=== PATIENT | female | born 1955 | race Caucasian/White ===

== ENCOUNTER 2022-04-07 07:42 | Outpatient (REF) | payer MEDICARE, SELFPAY ==
--- NOTE | ~2022-04-07 | MM_ITS ---
EXAMINATION: MM SCREENING DIGITAL BREAST TOMOSYNTHESIS, BILATERAL CLINICAL INFORMATION: Screening. Asymptomatic. The lifetime risk of breast cancer based on the Tyrer-Cuzick Model is 8%. COMPARISON: Mammography: 07/15/2019, 06/08/2018, 02/21/2017, 02/05/2016 TECHNIQUE: Digital mammography is performed in craniocaudal and mediolateral oblique views along with computer-aided detection (CAD). Digital breast tomosynthesis is performed in implant-displaced craniocaudal and implant-displaced mediolateral oblique views along with computer-aided detection (CAD). Synthesized 2D images are generated from the tomosynthesis. Additional bilateral CC and additional left MLO views are provided. FINDINGS: There are scattered areas of fibroglandular density (ACR BI-RADS breast composition Category b). There are no significant masses, abnormal calcifications, or other abnormalities. There is no developing density or interval architectural abnormality. Parenchymal pattern is similar to prior studies. There is chronic parenchymal asymmetry above left implant on MLO view similar to prior studies. The implant contours are smooth. The axilla and skin contours are unremarkable. MM/MM tomosynthesis screen imp BI IMPRESSION: No significant changes from prior exams. ASSESSMENT: BI-RADS 2: Benign RECOMMENDATION: Routine annual mammography screening. This patient's information was entered into a reminder system with a target due date for their next mammogram.
== END 2022-04-07 07:43 | disposition home or self-care (01) ==
LOC: HO.MAMMO 07:42
PROVIDERS: Visit Provider Nurse Practitioner Family
DX: Z12.31 Encounter for screening mammogram for malignant neoplasm of breast (principal)
CPT/HCPCS: 77063; 77067

== ENCOUNTER 2023-04-27 11:16 | Outpatient (REF) | payer MEDICARE, SELFPAY ==
--- NOTE | ~2023-04-27 | MM_ITS ---
EXAMINATION: MM SCREENING DIGITAL BREAST TOMOSYNTHESIS, BILATERAL CLINICAL INFORMATION: Screening. Asymptomatic. COMPARISON: Mammography: This study is compared with prior exams dating back to 2016. TECHNIQUE: Digital mammography is performed in craniocaudal and mediolateral oblique views along with computer-aided detection (CAD). Digital breast tomosynthesis is performed in implant-displaced craniocaudal and implant-displaced mediolateral oblique views along with computer-aided detection (CAD). Synthesized 2D images are generated from the tomosynthesis. FINDINGS: There are scattered areas of fibroglandular density (ACR BI-RADS breast composition Category b). There are bilateral, retropectoral silicone breast implants. There is a small amount free silicone within the pectoralis muscle on the left. The amount of silicone in the pectoralis has increased since the 2021 mammogram. A large amount of silicone was present in the left pectoralis muscle in the 2016 study is compared to the current study in the 2021 study.. It is unclear if the patient has had her implants replaced due to prior rupture already the implant was leaking and the silicone has migrated to the axillary lymph nodes.. Clinical correlation with patient's surgical history is also advised. Benign calcifications are present in the superior aspect of the right breast. There are no significant masses, abnormal calcifications, or other abnormalities. MM/MM tomosynthesis screen imp BI IMPRESSION: There are no mammographic signs of malignancy. Clinical and MRI evaluation is advised to evaluate left implant integrity. ASSESSMENT: BI-RADS BI-RADS 2 - Benign Findings RECOMMENDATION: Routine annual mammography screening. 1 year F/U This patient's information was entered into a reminder system with a target due date for their next mammogram.
== END 2023-04-27 11:17 | disposition home or self-care (01) ==
LOC: HO.MAMMO 11:16
PROVIDERS: PCP Nurse Practitioner Family; Visit Provider Nurse Practitioner Family
DX: Z12.31 Encounter for screening mammogram for malignant neoplasm of breast (principal)
CPT/HCPCS: 77063; 77067

== ENCOUNTER → 2023-04-27 11:30 | Outpatient (BNV) | payer MEDICARE, SELFPAY | PROVIDERS: PCP Nurse Practitioner Family; Visit Provider Radiology Diagnostic Radiology | DX: Z12.31 Encounter for screening mammogram for malignant neoplasm of breast (principal) | CPT/HCPCS: 77063; 77067 ==

== ENCOUNTER 2024-05-02 11:10 | Outpatient (REF) | payer MEDICARE, SELFPAY ==
--- NOTE | ~2024-05-02 | MM_ITS ---
EXAMINATION: MM SCREENING DIGITAL BREAST TOMOSYNTHESIS, BILATERAL CLINICAL INFORMATION: Screening. Asymptomatic. COMPARISON: Mammography: Comparison is made with prior available imaging. TECHNIQUE: Digital mammography is performed in craniocaudal and mediolateral oblique views along with computer-aided detection (CAD). Digital breast tomosynthesis is performed in implant-displaced craniocaudal and implant-displaced mediolateral oblique views along with computer-aided detection (CAD). Synthesized 2D images are generated from the tomosynthesis. FINDINGS: There are scattered areas of fibroglandular density (ACR BI-RADS breast composition Category b). Bilateral silicone implants are without gross abnormality. There are no significant masses, abnormal calcifications, or other abnormalities. MM/MM tomosynthesis screen imp BI IMPRESSION: There are no significant changes from prior study. ASSESSMENT: BI-RADS BI-RADS 2 - Benign Findings RECOMMENDATION: Routine annual mammography screening. 1 year F/U This patient's information was entered into a reminder system with a target due date for their next mammogram. Electronically signed by: Gianna Ibarra DO 05/19/2024 02:22 PM EDT
== END 2024-05-02 11:11 | disposition home or self-care (01) ==
LOC: HO.MAMMO 11:10
PROVIDERS: PCP Nurse Practitioner Family; Visit Provider Nurse Practitioner Family
DX: Z12.31 Encounter for screening mammogram for malignant neoplasm of breast (principal)
CPT/HCPCS: 77063; 77067

== ENCOUNTER → 2024-05-02 11:30 | Outpatient (BNV) | payer MEDICARE, SELFPAY | PROVIDERS: PCP Nurse Practitioner Family; Visit Provider Internal Medicine | DX: Z12.31 Encounter for screening mammogram for malignant neoplasm of breast (principal) | CPT/HCPCS: 77063; 77067 ==

== ENCOUNTER 2025-08-05 16:00 | Outpatient (REF) | payer MEDICARE, SELFPAY ==
--- NOTE | ~2025-08-05 | MM_ITS ---
EXAMINATION: MM SCREENING DIGITAL BREAST TOMOSYNTHESIS, BILATERAL CLINICAL INFORMATION: Screening. Asymptomatic. COMPARISON: Comparison made to multiple prior, most recent May 02, 2024, and most remote February 21, 2017. TECHNIQUE: Digital breast tomosynthesis is performed in mediolateral oblique and craniocaudal views along with computer-aided detection (CAD). Digital breast tomosynthesis is performed in implant-displaced craniocaudal and implant-displaced mediolateral oblique views along with computer-aided detection (CAD). Synthesized 2D images are generated from the tomosynthesis. FINDINGS: BREAST COMPOSITION: There are scattered areas of fibroglandular density. BILATERAL BREASTS: Bilateral retroglandular silicone implants appear mammographically intact. No significant masses, suspicious calcifications or other abnormalities are seen in either breast. MM/MM tomosynthesis screen imp BI IMPRESSION: BILATERAL BREASTS: Benign, no mammographic evidence of malignancy. Normal interval follow-up is recommended in 12 months. ASSESSMENT: BI-RADS: Category 2: Benign RECOMMENDATION: Routine annual mammography screening. FOLLOW-UP: 1 year F/U This examination should not preclude the clinical evaluation of a suspicious palpable abnormality. This patient's information was entered into a reminder system with a target due date for their next mammogram. Electronically signed by: Jake Segura MD 08/05/2025 06:52 PM [facility]
--- OUTSIDE RECORDS SUMMARY | 2025-08-05 22:46 | XMS_ITS | Encounter Summary ---
Author Organization [employer] Address [address] [place] [address] [address] [place] [address] Care Team Providers Care Grinder Gear Name Role Phone Rita Montalvo OUTSOLE HANDLER Unavailable Unavailable [place] DNP Primary Care Provider [phone] Reason for Visit * Reason Onset Date Comments Med Refill 01/22/2025 Encounter Details Date Type Department Care Team (Late st Contact Info) Description 01/22/[address] [phone] [place] W[place] DNP [address] [place] [id number] Attention deficit hyperactivity disorder (ADHD), combined type Social History Tobacco Use Types Packs/Day Years Used Date Smoking Tobacco: Former Cigarettes Passive Smoke Exposure: Past Smokeless Tobacco: Never Alcohol Use Standard Drinks/Week Comments Yes 0 (1 standard drink = 0.6 oz pur e alcohol) a drink or two a day Alcohol Answer Date Recorded How often do you have a drink containing alcohol ? 4 10/21/2024 Average Number of Drinks Not on file 025 How often do you have six or more drinks on one occasion? 0 10/21/2024 Housing Stability Answer Date Recorded What is your housing situation today? I have [place] cal[place] 10/21/[address] you li ve. Do you have problems with any of the following? None of the above 10/21/2024 Food Insecurity Answer Date Recorded Within the past 12 months, y ou worried that your food would run out before you got money to buy more: Never True 10/21/2024 Within the past 12 months,th e food you bought just didn't last and you didn't have enough money to get more: Never True Transportation Answer Date Recorded In the past 12 months, has l ack of transportation kept you from medical appts, meetings, work or from getting things needed for daily living? No 10/21/2024 Intimate Partner Violence Answer Date R ecorded Within the last year, have y ou been afraid of your partner or ex-partner? 2 10/21/2024 Within the last year, have y ou been humiliated or emotionally abused in other ways by your partner or ex-partner? 2 Within the last year, have y ou been kicked, hit, slapped, or otherwise physically hurt by your partner or ex-partner? 2 10/21/2024 Within the last year, have y ou been raped or forced to have any kind of sexual activity by your partner or ex-partner? 2 10/21/2024 Utilities Answer Date Recorded In the past 12 months, has t he electric, gas, oil or water company threatened to shut off services in your home? No 10/21/2024 Depression Answer Date Recorded Patient Health Questionnaire-2 Score 2 08/15/2023 Internet Access Answer Date Recorded Internet Access Q1 Yes 10/21/2024 Internet Access Q2 Not on file 10/21/2024 Comments Unknown Sex and Gender Information Value Date Recorded Sex Assigned at Female 01/24/2023 2:18 PM EDT Legal Sex Female 6:22 PM EDT Gender Identity Female 01/24/2023 2:18 PM EDT Sexual Orientation Don't know 01/24/2023 2: 19 PM EDT documented as of this encounter Miscellaneous Notes * Telephone Encounter - Glenys Pa RN - 01/22/2025 4:40 PM EDT Left message on [employer] machine this is a duplicate request . Meds were sent to the pharmacy yesterday documented in this encounter Plan of Treatment Upcoming Encounters Date Type Department Care Team (Late st Contact Info) Description 12/22/2025 10:20 AM EDT Office Visit [address] [place] [phone] Lake Wylie DNP [address] [place] [address] documented as of this encounter Visit Diagnoses Diagnosis Attention deficit hyperactivity disorder (ADHD), combined type documented in this encounter Care Teams Grinder Gear Relationship Specialty Start Date End Date [place] Wylie DNP [address] [place] [address] PCP - General Family Medicine 08/15/23 Rita Montalvo FNP Family Medicine 06/24/22 documented as of this encounter
--- OUTSIDE RECORDS SUMMARY | 2025-08-05 22:46 | XMS_ITS | Clinical Summary ---
Author Organization [employer] Address [address] [facility] [address] [place] [address] Care Team Providers Care Call Or Contact Centre Manager Name Role Phone Rita Montalvo JOIST SETTER Unavailable Unavailable [place] DNP Primary Care Provider [phone] Allergies No known active allergies Medications Diclofenac Sodium 1 % gelIndications:A rthralgia of hands, bilateral Apply thin layer to both hands twice daily. 150 g 2 025 Active Additional Information Patient not taking.Reported on 06/23/2025 buPROPion XL (Wellbutrin XL) 150 MG 24 hr tabletIndication s:Recurrent major depression in complete remission (CMS/HCC) Take 1 tablet (150 mg) by mouth in the morning. 90 tablet 1 025 Active rosuvastatin (Crestor) 40 MG tablet Take 1 tablet (40 mg) by mouth Once per day. 90 tablet 3 025 Active methylphenidate ER (Concerta) 27 MG CR tabletIndication s:Attention deficit hyperactivity disorder (ADHD), combined type Take 1 tablet (27 mg) by mouth in the morning. 28 tablet 5 3:26 PM EST 025 2024 Active methylphenidate ER (Concerta) 36 MG CR tabletIndication s:Attention deficit hyperactivity disorder (ADHD), combined type Take 1 tablet (36 mg) by mouth in the morning. 28 tablet 5 3:26 PM EST 025 2024 Active methylphenidate (Ritalin) 5 MG tabletIndication s:Attention deficit hyperactivity disorder (ADHD), combined type Take 1 tablet (5 mg) by mouth Once per day. 30 tablet 3:26 PM EST 025 2024 Active methylphenidate ER (Concerta) 27 MG CR tabletIndication s:Attention deficit hyperactivity disorder (ADHD), combined type Take 1 tablet (27 mg) by mouth in the morning. 28 tablet 025 2024 Discontinued(R eorder (will not trigger notification to Pharmacy)) methylphenidate ER (Concerta) 36 MG CR tabletIndication s:Attention deficit hyperactivity disorder (ADHD), combined type Take 1 tablet (36 mg) by mouth in the morning. 28 tablet 025 2024 Discontinued(R eorder (will not trigger notification to Pharmacy)) methylphenidate (Ritalin) 5 MG tabletIndication s:Attention deficit hyperactivity disorder (ADHD), combined type Take 1 tablet (5 mg) by mouth Once per day. 30 tablet 025 2024 Discontinued(R eorder (will not trigger notification to Pharmacy)) Active Problems Problem Noted Date Diagnosed Date Familial hypercholesterolemia 03/04/2025 ASCVD (arteriosclerotic cardiovascular disease) 03/04/2025 Arthralgia of hip 10/22/2019 Attention deficit hyperactiv ity disorder (ADHD), combined type 10/21/2019 Atypical nevus 10/21/2019 Recurrent major depression in complete remission 10/21/2019 Complication of breast implant 05/20/2019 Elastosis of skin 05/20/2019 Encounters Date Type Department Care Team Description 07/15/[address] [place] [id number] [place] DNP Attention deficit hyperactivity disorder (ADHD), combined type 06/24/2025 Results Follow-Up [facility] [address] [facility] [address] [place] [address] [place] DNP Lipid Panel, Standard, Comprehensive Metabolic Panel, CBC 06/23/2025 10:00 AM EDT Office Visit [facility] [address] [facility] [address] [place] [address] [place] DNP Attention deficit hyperactivity disorder (ADHD), combined type (Primary Dx); Familial hypercholesterolemia, unspecified type 05/26/2025 Refill [facility] [address] [facility] [address] [place] [address] [place] Wyl[place] DNP Attention deficit hyperactivity disorder (ADHD), combined type 05/23/[address] [phone] Olman Hazel MD 05/23/[address] [phone] [place] DNP Recurrent major depression in complete remission (CMS/HCC) 05/23/2025 Refill [facility] [address] [facility] [address] [place] [address] [place] Wylie DNP Attention deficit hyperactivity disorder (ADHD), combined type from Last 3 Months Immunizations Immunization Administration Dates Next Due Tdap 10/21/2019,03/30/2010 Social History Tobacco Use Types Packs/Day Years Used Date Smoking Tobacco: Former Cigarettes Passive Smoke Exposure: Past Smokeless Tobacco: Never Tobacco Cessation:Counseling Given: Not Answered Alcohol Use Standard Drinks/Week Comments Yes 0 [...] Don't know 01/24/2023 2: 19 PM EDT Last Filed Vital Signs Vital Sign Reading Time Taken Comments Blood Pressure 132/82 06/23/2025 10:05 AM EDT Pulse 62 06/23/2025 10:05 AM EDT Temperature 36.4 C (97.6 F) 06/23/2025 10:05 AM EDT Respiratory Rate - - Oxygen Saturation 99% 06/23/2025 10:05 AM EDT Inhaled Oxygen Concentration - - Weight 66.7 kg (147 lb) 06/23/2025 10:05 AM EDT Height 165.1 cm (5' 5 ) 03/04/2025 12:59 PM EDT Body Mass Index 24.46 03/04/2025 12:59 PM EDT Plan of Treatment Upcoming Encounters Date Type Department Care Team (Late st Contact Info) Description 12/22/2025 10:20 AM EDT Office Visit [address] [place] [address] [place] y[place], DNP [address] [facility] [address] [place] [address] Health Maintenance Due Date Last Done Comments CT Colonography 1956 FIT 1956 Sigmoidoscopy 1955 Pneumococcal Vaccine: 50+ Years (1 of 2 - PCV) 11/29/1975 RSV Patients and Patients Aged 60 years or older (1 - Risk 50-74 years 1-dose series) 2006 Zoster Vaccines (1 of 2) 2006 Depression Screening 08/15/2024 08/15/2023, 08/15/20 23 COVID-19 Vaccine (2024- season) 2025 08/02/2021, 12/04/2020, 11/06/2020 Mammogram 05/02/2025 05/02/2024, 03/28, 07/23/2019, Additional history exists Alcohol/Substance Use Screening 10/21/2025 10/21/2024 SDOH Screening 10/21/2025 10/21/2024 FOBT 11/20/2025 11/20/2024 Influenza Vaccine (#1) 2026 Postp oned from 04/28/2025 (Patient Refused) Tobacco Screening 06/24/2026 06/24/2025 FIT DNA/Cologuard 11/21/2027 11/20/2024 DTaP/Tdap/Td Vaccines (3 - Td or Tdap) 10/21/2029 10/21/2019, 03/30/2010 Lipid Panel 06/23/2030 06/23/2025, 06/06/2024 Colonoscopy 02/19/2032 02/18/2025, 01/27, 02/18/2025, Additional history exists Colorectal Cancer Screening 02/19/2032 Cervical Cancer Screening Discontinued HPV/Cotest Discontinued 05/26/2020 Pap Smear Discontinued 05/26/2020 Hepatitis C Screening Completed 10/21/2024 HIB Vaccines Aged Out No longer eligi ble based on patient's age to complete this topic HPV Vaccines Aged Out No longer eligi ble based on patient's age to complete this topic Hepatitis A Vaccines Aged Out No long er eligible based on patient's age to complete this topic Hepatitis B Vaccines Aged Out No long er eligible based on patient's age to complete this topic IPV Vaccines Aged Out No longer eligi ble based on patient's age to complete this topic Meningococcal B Vaccine Aged Out No l onger eligible based on patient's age to complete this topic Meningococcal Vaccine Aged Out No oni remington eligible based on patient's age to complete this topic RSV under 20 months Aged Out No longe r eligible based on patient's age to complete this topic Rotavirus Vaccines Aged Out No longer eligible based on patient's age to complete this topic Procedures Procedure Name Priority Date/Time Associated Diagnosis Comments CBC Routine 06/23/2025 10:35 AM EDT Familial hypercholesterolemi a, unspecified type COMPREHENSIVE METABOLIC PANEL Routine 06/23/2025 10:35 AM EDT Familial hypercholesterolemi a, unspecified type LIPID PANEL, STANDARD Routine 06/23/2025 10:35 AM EDT Familial hypercholesterolemi a, unspecified type COLONOSCOPY Routine 02/18/2025 3:11 PM EDT LAB COLOGUARD COLON CANCER SCREEN Routine 11/20/2024 8:34 AM EDT Colon cancer screening HEPATITIS C AB W/REFL TO HCV RNA, QN, PCR Routine 10/21/2024 11:32 AM EST Screening for viral disease MAMMOGRAPHY Routine 05/02/2024 12:06 PM EDT THIN PREP PAP, WITH HPV, GENOTYPE IF HPV+ Routine 05/26/2020 11:32 PM EDT from Last 3 Months or Most Recently Relevant to Health Maintenance Results * CBC (06/23/2025 10:35 AM EDT) White Blood Cell Count 7.1 3.8 - 10.8 Thousand/ uL [facility] Red Blood Cell Count 4.60 3.80 - 5.10 Million/u L [facility] Hemoglobin 14.8 11.7 - 15.5 g/dL [facility] Hematocrit 44.4 35.0 - 45.0 % [facility] MCV 96.5 80.0 - 100.0 fL [facility] MCH 32.2 27.0 - 33.0 pg [facility] MCHC 33.3 32.0 - 36.0 g/dL [facility] Comment: For adults, a slight decrease in the calculated MCHC value (in the range of 30 to 32 g/dL) is most likely not clinically significant; however, it should be interpreted with caution in correlation with other red cell parameters and the patient's clinical condition. RDW 13.0 11.0 - 15.0 % [facility] Platelet Count 295 140 - 400 Thousand/ uL [facility] MPV 10.5 7.5 - 12.5 fL [facility] Blood Venous blood specimen / Unknown 06/23/2025 10:35 AM EDT 06/23/2025 10:35 AM EDT [place] [facility] LAB BLOOD ORDERABLES Final Result [facility] [address] [place] [address] [facility] [address] [place] [address] * (ABNORMAL) Lipid Panel, Standard (06/23/2025 10:35 AM EDT) Cholesterol, Total 223(H) <200 mg/dL [facility] HDL Cholesterol 78 > OR = 50 mg/dL [facility] Triglycerides 53 <150 mg/dL [facility] LDL Cholesterol 131(H) mg/dL [facility] Comment: Reference range: <100 Desirable range <100 mg/dL for primary prevention; <70 mg/dL for patients with CHD or diabetic patients with > or = 2 CHD risk factors. LDL-C is now calculated using the Aj-Leach calculation, which is a validated novel method providing better accuracy than the Friedewald equation in the estimation of LDL-C. Aj SS et al. SAMANTA. 2013;310(19): 4015-5114 (http://education.Socialcam/faq/EVJ198) Chol/HDLC Ratio 2.9 <5.0 (calc) [facility] Non-HDL Cholesterol 145(H) <130 mg/dL [facility] Comment: For patients with diabetes plus 1 major ASCVD risk factor, treating to a non-HDL-C goal of <100 mg/dL (LDL-C of <70 mg/dL) is considered a therapeutic option. Blood Venous blood specimen / Unknown 06/23/2025 10:35 AM EDT 06/23/2025 10:35 AM EDT [place] [facility] LAB BLOOD ORDERABLES Final Result [facility] [address], [place] [address] [facility] [address] [place] [address] * (ABNORMAL) Comprehensive Metabolic Panel (06/23/2025 10:35 AM EDT) [facility] Signature Glucose 69 65 - 99 mg/dL [facility] Comment: Fasting reference interval Urea Nitrogen (BUN) 17 7 - 25 mg/dL [facility] Creatinine, Serum 0.59 0.50 - 1.05 mg/dL [facility] eGFR 98 > OR = 60 mL/min/1. 73m2 [facility] BUN/Creatinine Ratio SEE NOTE: 6 - 22 (calc) [facility] Comment: Not Reported: BUN and Creatinine are within reference range. Sodium 138 135 - 146 mmol/L [facility] Potassium 4.6 3.5 - 5.3 mmol/L [facility] Chloride 100 98 - 110 mmol/L [facility] Carbon Dioxide 29 20 - 32 mmol/L [facility] Calcium 9.8 8.6 - 10.4 mg/dL [facility] Protein, Total 7.4 6.1 - 8.1 g/dL [facility] Albumin 4.3 3.6 - 5.1 g/dL [facility] Globulin 3.1 1.9 - 3.7 g/dL (calc) [facility] Albumin/Globuli n Ratio 1.4 1.0 - 2.5 (calc) [facility] Bilirubin, Total 0.8 0.2 - 1.2 mg/dL [facility] Alkaline Phosphatase 58 37 - 153 U/L [facility] AST 48(H) 10 - 35 U/L [facility] ALT 51(H) 6 - 29 U/L [facility] Blood Venous blood specimen / Unknown 06/23/2025 10:35 AM EDT 06/23/2025 10:35 AM EDT [place] [facility] LAB BLOOD ORDERABLES Final Result [facility] [address], [place] [address] [facility] [address] [place] [address] * Colonoscopy (02/18/2025 3:11 PM EDT) Not In System Provider HEALTH MAINTENANCE Edited Result - Final * (ABNORMAL) Cologuard?? colon cancer screening (11/20/2024 8:34 AM EDT) Cologuard Result Positive( A) Negative 11/23/2024 8:36 AM EDT [facility] (CLIA #:[id number]) Comment: POSITIVE TEST RESULT. A positive Cologuard result should be followed with a colonoscopy or visual examination of the colon. The normal value (reference range) for this assay is negative. TEST DESCRIPTION: Composite algorithmic analysis of stool DNA-biomarkers with hemoglobin immunoassay. Quantitative values of individual biomarkers are not reportable and are not associated with individual biomarker result reference ranges. Cologuard is intended for colorectal cancer screening of adults of either sex, 45 years or older, who are at average-risk for colorectal cancer (CRC). Cologuard has been approved for use by the U.S. FDA. The performance of Cologuard was established in a cross sectional study of average-risk adults aged 50-84. Cologuard performance in patients ages 45 to 49 years was estimated by sub-group analysis of near-age groups. Colonoscopies performed for a positive result may find as the most clinically significant lesion: colorectal cancer [4.0%], advanced adenoma (including sessile serrated polyps greater than or equal to 1cm diameter) [20%] or non- advanced adenoma [31%]; or no colorectal neoplasia [45%]. These estimates are derived from a prospective cross-sectional screening study of 10,000 individuals at average risk for colorectal cancer who were screened with both Cologuard and colonoscopy. (Celso Bah al, N Engl J Med 2014;370(14):5022-4755.) Cologuard may produce a false negative or false positive result (no colorectal cancer or precancerous polyp present at colonoscopy follow up). A negative Cologuard test result does not guarantee the absence of CRC or advanced adenoma (pre-cancer). The current Cologuard screening interval is every 3 years. ([place] [employer] Society and U.S. Multi-Society Task Force). Cologuard performance data in a 10,000 patient pivotal study using colonoscopy as the reference method can be accessed at the following location: www.[employer]/results. Additional description of the Cologuard test process, warnings and precautions can be found at [email or web address]. Stool specimen (specimen) 11/20/2024 8:34 AM EDT 11/21/2024 12:39 PM EDT [place] DNP LAB MOLECULAR DIAGNOSTICS O RDERABLES Final Result [facility] (CLIA #:[id number]) [address] [place] [address], * Hepatitis C Antibody with Reflex to HCV, RNA, Quantitative, Real-Time PCR (10/21/2024 11:32 AM EST) Hepatitis C Antibody NON-REACT ADRIANA NON-REACT ADRIANA [facility] Comment: HCV antibody was non-reactive. There is no laboratory evidence of HCV infection. In most cases, no further action is required. However, if recent HCV exposure is suspected, a test for HCV RNA (test code 12572) is suggested. For additional information please refer to http://education.[employer]/faq/PDT20j7 (This link is being provided for informational/ educational purposes only.) Blood Venous blood specimen / Unknown 10/21/2024 11:32 AM EST 10/21/2024 11:33 AM EST [place] DNP LAB BLOOD ORDERABLES Final Result [facility] [address], [place] [address] [facility] [address] [place] [address] * Hm Mammography (05/02/2024 12:06 PM EDT) Anatomical Region Laterality Modality Other us Not In System Provider HEALTH MAINTENANCE Edited Result - Final * THIN PREP PAP, WITH HPV, GENOTYPE IF HPV+ (05/26/2020 11:32 PM EDT) See Report [facility] 05/26/2020 11:3 2 PM EDT us Historical Provider MD LAB CYTOLOGY ORDERABLES F inal Result [facility] [address] [place] [address], from Last 3 Months or Most Recently Relevant to Health Maintenance Insurance MEDICARE [facility] MEDEX MEDICARE SUPPLEMENT * Guarantor: Clair Page Account Type Relation to Patient Date of Phone Billing Address Dental Self Care Teams Call Or Contact Centre Manager Relationship Specialty Start Date End Date [place] DNP [address] [facility] [place] [address] PCP - General Family Medicine 08/15/23 Rita Montalvo FNP Family Medicine 06/24/22
--- OUTSIDE RECORDS SUMMARY | 2025-08-05 22:46 | XMS_ITS | Encounter Summary ---
Author Organization [facility] Address [address] [facility] [address] [place] [address] Phone Care Team Providers Care Final Cleaner Name Role Phone Rita Montalvo INFORMATION SECURITY ASSOCIATE Primary Care Provider Jaclyn Weiss MD Primary Care Provider Unavail Rita Maguire INFORMATION SECURITY ASSOCIATE Primary Care Provider [place] INFORMATION SECURITY ASSOCIATE Primary Care Provider [phone] Encounter Details Date Type Department Care Team (Late st Contact Info) Description 04/15/2020 Procedure Pass OR Admitting Dept - Virtual Department [address] [place] [id number] Social History Tobacco Use Types Packs/Day Years Used Date Smoking Tobacco: Former Cigarettes 2 17 1 969 - 1986 Smokeless Tobacco: Never Alcohol Use Standard Drinks/Week Comments Yes 14 (1 standard drink = 0.6 oz pu re alcohol) Comments No Sex and Gender Information Value Date Recorded Sex Assigned at Not on file Legal Sex Female 10:33 AM EDT Gender Identity Not on file Sexual Orientation Not on file documented as of this encounter Plan of Treatment Upcoming Encounters Date Type Department Care Team (Late Contact Info) Description 09/18/2025 10:00 AM EST Office Visit [facility] Rheumatology [address] [place] [address] Audra Ulloa MD [address] [facility], [address] [place] [address] [email or web address] documented as of this encounter Visit Diagnoses Not on filedocumented in this encounter Care Teams Final Cleaner Relationship Specialty Start Date End Date Rita Montalvo NP [address] [place] [address] PCP - General Family Medicine 02/10/20 10/05/20 Jaclyn Weiss MD PCP - General Nephrology 10/06/20 06/22/22 Rita Montalvo NP [address] [place] [address] PCP - General Family Medicine 06/23/22 02/17/25 [place] NP [address] [place] [address] PCP - General Nurse Practitioner 02/18/25 documented as of this encounter Additional Source Comments The information contained in this document represents components of the legal health record. It is not the complete legal health record.[facility]
--- OUTSIDE RECORDS SUMMARY | 2025-08-05 22:46 | XMS_ITS | Clinical Summary ---
Author Organization [facility] Address [address] [employer] [facility] [address] [place] [address] Phone Care Team Providers Care Assembler Equipment Name Role Phone Lake Wylie NP Primary Care Provider +1- [phone] Allergies No known active allergies Medications methylphenidate HCl 36 MG ER tablet Take 36 mg by mouth every morning. Active methylphenidate HCl 27 MG CR tablet Take 27 mg by mouth every morning. Active calcium carb,cit-mag cit,ox-D3 300 mg-150 mg- 400 unit Tab Active glucosam-chondr qvq-J-krgxyzspm 500-400-2-0.33 mg Cap 1 capsule with a meal Active magnesium oxide-Mg AA chelate 300 mg Cap 1 capsule with a meal Active bupropion HCl (WELLBUTRIN ORAL) Take 150 mg by mouth daily. Active buPROPion (WELLBUTRIN XL) 150 MG ER 24 hr tablet Take 150 mg by mouth daily. 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 Complication of breast implant 05/20/2019 Encounter for exchange of breast implant 019 Encounters Date Type Department Care Team Description 06/24/2025 Transcribe Orders [facility] Rheumatology - Virtual Department [address] [place], [place] [id number] Lake Wylie, SALES PROMOTION COORDINATOR Arthralgia of both hands (Primary Dx) from Last 3 Months Family History Medical History Relation Comments Throat cancer Father Heart disease Maternal Grandfather No Known Problems Maternal Grandmother Heart disease Mother No Known Problems Paternal Grandfather No Known Problems Paternal Grandmother Relation Status Comments Father Maternal Grandfather Maternal Grandmother Mother Paternal Grandfather Paternal Grandmother Social History Tobacco Use Types Packs/Day Years Used Date Smoking Tobacco: Former Cigarettes 2 17 1 969 - 1985 Smokeless Tobacco: Never Tobacco Cessation:Counseling Given: Not Answered Alcohol Use Standard Drinks/Week Comments Yes 14 (1 standard drink = 0.6 oz pu re alcohol) 2 daily Education Answer Date Recorded Are you interested in more education? Not on rebecca e 12/23/2022 Are you concerned about learning? Not on file 12/23/2022 No 12/23/2022 No 12/23/2022 Digital Access Answer Date Recorded No 01/21/2023 No 01/21/2023 Reliable internet access at home? Not on file 01/21/2023 Device with a working camera? Not on file Intimate Partner Violence Answer Date R ecorded Are you denied basic needs s uch as food, clothing, or medical care? No 02/18/2025 In the past 12 months have y ou been in a relationship with a person who hurts, threatens, or tries to control you? No 02/18/2025 Are you denied basic needs s uch as food, clothing, or medical care? No 02/18/2025 In the past 12 months have y ou been in a relationship with a person who hurts, threatens, or tries to control you? No 02/18/2025 Comments No Sex and Gender Information Value Date Recorded Sex Assigned at Not on file Legal Sex Female 10:33 AM EDT Gender Identity Not on file Sexual Orientation Not on file Last Filed Vital Signs Vital Sign Reading Time Taken Comments Blood Pressure 129/70 02/18/2025 9:05 AM EDT Pulse 64 02/18/2025 9:05 AM EDT Temperature 36.5 C (97.7 F) 02/18/2025 8:10 AM EDT Respiratory Rate 22 02/18/2025 9:05 AM EDT Oxygen Saturation 100% 02/18/2025 9:05 AM EDT Inhaled Oxygen Concentration - - Weight 67.1 kg (148 lb) 02/12/2025 8:42 AM EDT Height 167.6 cm (5' 6 ) 02/12/2025 8:42 AM EDT Body Mass Index 23.89 02/12/2025 8:42 AM EDT Plan of Treatment Upcoming Encounters Date Type Department Care Team (Late st Contact Info) Description 09/18/2025 10:00 AM EST Office Visit [facility] Rheumatology [address] [place] [address] Audra Ulloa MD [address] [facility], [address] [place] [address] [email or web address] Health Maintenance Due Date Last Done Comments LIPID PANEL 1955 DEPRESSION SCREENING 1968 HEPATITIS C SCREENING 1974 MAMMOGRAM 1996 FIT TEST 2001 FOBT 2001 SIGMOIDOSCOPY 2001 VIRTUAL COLONOSCOPY 2001 PNEUMOCOCCAL VACCINES (50+ years) (1 of 1 - PCV) 2006 ZOSTER VACCINES (1 of 2) 2006 OSTEOPOROSIS SCREENING INITI AL (ONE-TIME) 2021 INFLUENZA VACCINE (#1) 2025 COVID-19 VACCINE (4 - 2024-2 6 season) 2025 08/02/2021, 12/04/2020, 11/06/2020 COLOGUARD 11/21/2027 11/20/2024 Adult Td,Tdap Booster 10/21/2029 10/21/2019 , 03/30/2010 RSV VACCINE (1 - 1-dose 75+ series) 11/29/2031 COLONOSCOPY 02/18/2035 02/18/2025, 06/23/2022 COLORECTAL CANCER SCREENING 02/18/2035 SMOKING STATUS SCREENING (On ce After 26 Yrs) Completed 02/18/2025 HEPATITIS A VACCINES Aged Out No long er eligible based on patient's age to complete this topic HIB VACCINES Aged Out No longer eligi ble based on patient's age to complete this topic MENINGOCOCCAL VACCINES (ACWY) Aged Out No longer eligible based on patient's age to complete this topic MENINGOCOCCAL VACCINES (B) Aged Out N o longer eligible based on patient's age to complete this topic Medical Devices Implanted Type Area Information Coordinator Device Identifier Shelf Expiration Date Model / Serial / Lot Breast Shell 295cc Implant Silicone Smooth Round Cohesive - [id number] Implanted:Qty: 1 on 04/15/2020 by Jh Siddiqui MD at [facility] Right: Breast [employer] 11/04/2023 [id number] / [id number] / [id number] Implant Breast 375cc Silicone Smooth Round Cohesive Silicone Shell Od10.4cm P5.3cm - [id number] Implanted:Qty: 1 on 04/15/2020 by Jh Siddiqui MD at [facility] Left: Breast [employer] 10/10/2024 [id number] / [id number] / [id number] Sizer Breast 11cm 4.8 310 Implant [employer] Saline Silicone Elastomer Profile High Smooth Round - [id number] Implanted:Qty: 2 on 04/15/2020 by Jh Siddiqui MD at [facility] [employer] [id number] / [id number] / [id number] Procedures Procedure Name Priority Date/Time Associated Diagnosis Comments ENDOSCOPY, COLON 02/18/2025 8:34 AM EDT from Last 3 Months or Most Recently Relevant to Health Maintenance Results * ENDOSCOPY, COLON (02/18/2025 8:34 AM EDT) Narrative Transcriptions Jewels Majano MD - 02/18/2025 8:34 AM EDT [facility] Patient Name: Clair Dean Attending MD:: JEWELS MAJANO MD, Procedure Date: 02/18/2025 8:34 AM Date of : 1955 Age: 69 Admit Type: Outpatient Gender: Female Room: [place] [address] Referring MD: Lake Wylie Exam Type: Colonoscopy Indications: Last colonoscopy: May 2022, Positive Cologuard test, Personal history of colonic polyps Medications: Monitored Anesthesia Care Procedure: Informed consent was obtained from the patientafter discussion of the indications, limitations, alternatives, benefits, and risks of the procedure. Risks specifically discussed include but are not limited to medication reactions, missed lesions, bleeding, perforation, or the need for emergent surgery. Throughout the procedure, the patient's blood pressure, pulse, end-tidal CO2, and oxygensaturations were monitored continuously. The Olympus pediatric variable [id number] #2 was introduced through the anus and advanced tothe cecum, identified by the appendiceal orifice, ileocecal valve and palpation. The colonoscopy was technically difficult and complex due to aredundant colon, significant looping and a tortuous colon. Successful completion of the procedure was aided by applying abdominal pressure. The patient toleratedthe procedure fairly well. The quality of the bowel preparation was evaluated using the BBPS (BostonBowel Preparation Scale) with scores of: Right Colon = 2 (minor amount of residual staining, small fragmentsof stool and/or opaque liquid, but mucosa seen well), Transverse Colon = 3 (entire mucosa seen well withno residual staining, small fragments of stool oropaque liquid) and Left Colon = 2 (minor amount ofresidual staining, small fragments of stool and/or opaque liquid, but mucosa seen well). The total BBPS score equals 7. The ileocecal valve, appendiceal orifice, and rectum were photographed. Complications: No immediate complications. Estimated blood loss:None. Findings: The perianal and digital rectal examinations were normal. Pertinent negatives include normalsphincter tone. A few small-mouthed diverticula were found in the sigmoid colon and descending colon. The colon (entire examined portion) was moderately redundant. Retroflexion in the right colon was performed. The exam was otherwise without abnormality ondirect and retroflexion views. Impression: - Diverticulosis in the sigmoid colon and in the descending colon. - Redundant colon. - The examination was otherwise normal on directand retroflexion views. - No specimens collected. Recommendation: - Reassurance - Repeat colonoscopy in 7-10 years for surveillance. - High fiber diet. JEWELS MAJANO MD 02/18/2025 9:01:05 AM This report has been signed electronically. Number of Addenda: 0 Note Initiated On: 02/18/2025 8:34 AM Procedure Code(s): --- Professional --- 35179, Colonoscopy, flexible; diagnostic, including collection of specimen(s) by brushing or washing, when performed (separateprocedure) --- Technical --- 59348, Colonoscopy, flexible; diagnostic, including collection of specimen(s) by brushing or washing, when performed (separateprocedure) Diagnosis Code(s): --- Professional --- R19.5, Other fecal abnormalities Z86.010, Personal history of colonic polyps K57.30, Diverticulosis of large intestine without perforation or abscess without bleeding Q43.8, Other specified congenital malformations of intestine --- Technical --- R19.5, Other fecal abnormalities Z86.010, Personal history of colonic polyps K57.30, Diverticulosis of large intestine without perforation or abscess without bleeding Q43.8, Other specified congenital malformations of intestine CPT copyright 2021 [employer]. All rights reserved. The codes documented in this report are preliminary and upon events assistant reviewmay be revised to meet current compliance requirements. Procedure Date: 02/18/2025 8:34:[address] [place] [address] Lake Wylie NP GI PROCEDURE ORDERABLES Fi nal Result from Last 3 Months or Most Recently Relevant to Health Maintenance Insurance * Guarantor: Clair Dean Account Type Relation to Patient Date of Phone Billing Address Personal/Family Self 1955 [phone] (Work) [address] [place] [address] [facility] MEDEX SUPPLEMENT MEDICARE PART A & B * Guarantor: RonaldnewtonClair Account Type Relation to Patient Date of Phone Billing Address Personal/Family Self 1955 [phone] (Work) [address] [place] [address] [facility] MEDEX SUPPLEMENT MEDICARE PART A & B * Guarantor: RonaldnewtonClair Account Type Relation to Patient Date of Phone Billing Address Personal/Family Self 1955 [phone] (Work) [address] [place] [address] [employer] MEDEX SUPPLEMENT MEDICARE PART A & B Member Subscriber Plan / Payer (Ef fective 2021-) Name:ShermanmarlenClair fitch Member ID:[id number] Relation to Subscriber:Self Name:Clair Dean Subscriber ID:[id number] Payer ID:[id number] Group ID:Not on file Type:Medicare Address: [facility] [employer] [place] [id number] * Guarantor: RonaldnewtonClair Account Type Relation to Patient Date of Phone Billing Address Personal/Family Self 1955 [phone] (Work) [address] [place] [address] [employer] MEDEX SUPPLEMENT MEDICARE PART A & B * Guarantor: RonaldtavoClair martins Account Type Relation to Patient Date of Phone Billing Address Personal/Family Self 1955 [phone] (Work) [address] [place] [address] [employer] MEDEX SUPPLEMENT MEDICARE PART A & B * Guarantor: AnnamarieyousifClair Account Type Relation to Patient Date of Phone Billing Address Personal/Family Self 1955 [phone] (Work) [address] [place] [address] [employer] MEDEX SUPPLEMENT MEDICARE PART A & B Member Subscriber Plan / Payer (Ef fective 2021-) Name:Clair Dean Member ID:[id number] Relation to Subscriber:Self Name:Clair Dean Subscriber ID:[id number] Payer ID:[id number] Group ID:Not on file Type:Medicare Address: [employer] [address] [id number] * Guarantor: ShermanhuebrtClair martins Account Type Relation to Patient Date of Phone Billing Address Personal/Family Self 1955 [phone] (Work) [address] [place] [id number] [place] [address] MEDEX SUPPLEMENT MEDICARE PART A & B * Guarantor: AnnamarieyousifClair Account Type Relation to Patient Date of Phone Billing Address Personal/Family Self 1955 [phone] (Work) [address] [place] [address] [employer] MEDEX SUPPLEMENT MEDICARE PART A & B * Guarantor: DianneClair Account Type Relation to Patient Date of Phone Billing Address Personal/Family Self 1955 [phone] (Work) [address] [place] [address] [employer] MEDEX SUPPLEMENT MEDICARE PART A & B Advance Directives For more information, please contact: [phone] (9AM - 5PM [facility], Monday-Monday) Documents on File Type Date Recorded Patient Workers Compensation Legal Secretary Expl anation Healthcare Proxy 04/16/2020 10:21 AM * Full Code (Presumed) (Latest Code Status on File) Date Activated Date Inactivated Comments 04/15/2020 7:16 AM Care Teams Assembler Equipment Relationship Specialty Start Date End Date Lake Wylie NP [address] [place] [address] [address] [place] [address] PCP - General Nurse Practitioner 02/18/25 Additional Source Comments The information contained in this document represents components of the legal health record. It is not the complete legal health record.[facility]
--- OUTSIDE RECORDS SUMMARY | 2025-08-05 22:46 | XMS_ITS | Encounter Summary ---
Author Organization [employer] Address [address] [place] [address] 7t [place] [address] Care Team Providers Care Circuits Engineer Name Role Phone Rita Montalvo COMMUNICATION MANAGER Unavailable Unavailable Lake Wylie DNP Primary Care Provider [phone] Encounter Details Date Type Department Care Team (Late st Contact Info) Description 04/24/2025 Orders Only [facility] [address] [place] [address] Provider, Not In System Social History Tobacco Use Types Packs/Day Years [...] PM EDT documented as of this encounter Plan of Treatment Upcoming Encounters Date Type Department Care Team (Late st Contact Info) Description 12/22/2025 10:20 AM EDT Office Visit [address] [place] [address] Lake Wylie, [facility] [address] [place] [address] documented as of this encounter Procedures Procedure Name Priority Date/Time Associated Diagnosis Comments COLONOSCOPY Routine 02/18/2025 3:11 PM EDT documented in this encounter Results * Hm Colonoscopy (02/18/2025 3:11 PM EDT) us Not In System Provider [facility] Edited Result - Final documented in this encounter Visit Diagnoses Not on filedocumented in this encounter Care Teams Circuits Engineer Relationship Specialty Start Date End Date Lake Wylie DNP [address] [facility] [place] [address] PCP - General Family Medicine 08/15/23 Rita Montalvo FNP Family Medicine 06/24/22 documented as of this encounter
--- OUTSIDE RECORDS SUMMARY | 2025-08-05 22:46 | XMS_ITS | Encounter Summary ---
Author Organization [facility] Address [address] [facility] [address] [place] [address] Phone Care Team Providers Care Hearing Aid Mechanic Name Role Phone Rita Montalvo NP Primary Care Provider Jaclyn Weiss MD Primary Care Provider Shimon Rita Maguire NP Primary Care Provider Lake Wylie PACKAGE PICK UP Primary Care Provider [phone]- [phone] Reason for Referral * Occupational Therapy (Routine) - Closed Specialty Diagnoses / Procedures Referred By Claudine bee Referred To Contact Occupational Therapy Diagnoses Encounter for rehabilitation Rita Montalvo NP Phone: tel: fax: [address] [address] Phone: tel: Referral ID Status Reason Start Date Expiration Date Visits Re quested Visits Authorized [id number] Closed 06/29/2020 06/29/2021 6 6 Encounter Details Date Type Department Care Team (Latest Contact Info) Description 06/29/2020 Transcribe Orders [facility] [address] [place] [address] Rita Montalvo NP [address] [place] [address] Encounter for rehabilitation (Primary Dx) Social History Tobacco Use Types Packs/Day Years [...] Description 09/18/2025 10:00 AM EST Office Visit [facility] Rheumatology [address] [place] [address] Audra Ulloa MD [address] [facility], [address] [place] [address] [email or web address] Scheduled Referrals Name Type Priority Associated Diagnoses Orde r Schedule Ambulatory referral to [facility] Occupational Therapy Outpatient Referral Routine Encounter for rehabilitation Ordered: 06/29/2020 documented as of this encounter Visit Diagnoses Diagnosis Encounter for rehabilitation- Primary documented in this encounter Care Teams Hearing Aid Mechanic Relationship Specialty Start Date End Date Rita Montalvo NP [address] [place] [address] PCP - General Family Medicine 02/10/20 10/05/20 Jaclyn Weiss MD PCP - General Nephrology 10/06/20 06/22/22 Rita Montalvo NP [address] [place] [address] PCP - General Family Medicine 06/23/22 02/17/25 Lake Wylie NP [address] [place] [address] [address] [place] [address] PCP - General Nurse Practitioner 02/18/25 documented as of this encounter Additional Source Comments The information contained in this document represents components of the legal health record. It is not the complete legal health record.[facility]
--- OUTSIDE RECORDS SUMMARY | 2025-08-05 22:46 | XMS_ITS | Encounter Summary ---
Author Organization [employer] Address [address] [place] [address] 7 [place] [address] Care Team Providers Care Stock Sorter Name Role Phone Noris Montalvohel OPHTHALMIC MEDICAL TECHNICIAN Unavailable Unavailable Lake Wylie DNP Primary Care Provider [phone] Encounter Details Date Type Department Care Team (Late st Contact Info) Description 10/28/2024 Telephone [facility] [address] [facility] [address] [place] [address] Lake Wylie DNP [address] [place] [address] Social History Tobacco Use Types Packs/Day Years [...] enough money to get more: Never True 02/ Transportation Answer Date Recorded In the past [...] encounter Miscellaneous Notes * Telephone Encounter - Marquita Castillo - 10/31/2024 11:56 AM EST Processed and faxed * Telephone Encounter - Lake Wylie DNP - 10/29/2024 2:56 PM EST Please enter colonoscopy for screening. * Telephone Encounter - Marii Her - 10/28/2024 12:00 PM EST Patient would like to have a coloscopy please aske pcp for the order/refferal [phone] documented in this encounter Plan of Treatment Upcoming Encounters Date Type Department Care Team (Late st Contact Info) Description 12/22/2025 10:20 AM EDT Office Visit [facility] [address] [facility] [address] [place] [address] Lake Wylie DNP [address] [facility] [place] [place] [address] documented as of this encounter Visit Diagnoses Not on filedocumented in this encounter Care Teams Stock Sorter Relationship Specialty Start Date End Date aLke Wylie DNP [address] [place] [address] PCP - General Family Medicine 08/15/23 Rita Montalvo FNP Family Medicine 06/24/22 documented as of this encounter
--- OUTSIDE RECORDS SUMMARY | 2025-08-05 22:46 | XMS_ITS | Encounter Summary ---
Author Organization [employer] Address [address] [place] [address] 7 [place] [address] Care Team Providers Care Racking Machine Operator Name Role Phone Rita Montalvo MAINSPRING TORQUE TESTER Unavailable Unavailable Lake Wylie DNP Primary Care Provider [phone] Encounter Details Date Type Department Care Team (Latest Contact Info) Description 06/24/2025 Results Follow-Up [facility] 119 [facility] [address] [place] [address] Lake Wylie DNP [address] [place] [address] Lipid Panel, Standard, Comprehensive Metabolic Panel, CBC Social History Tobacco Use Types Packs/Day Years [...] Description 12/22/2025 10:20 AM EDT Office Visit [facility] [address] [facility] [address] [place] [address] Lake Wylie DNP [address] [place] [address] documented as of this encounter Visit Diagnoses Not on filedocumented in this encounter Care Teams Racking Machine Operator Relationship Specialty Start Date End Date Lake Wylie DNP [address] [place] [address] PCP - General Family Medicine 08/15/23 Rita Montalvo FNP Family Medicine 06/24/22 documented as of this encounter
--- OUTSIDE RECORDS SUMMARY | 2025-08-05 22:46 | XMS_ITS | Encounter Summary ---
Author Organization [employer] Address [address] [place] [address] 7t [place] [address] Care Team Providers Care Medication Tech Name Role Phone Rita Montalvo SUPERVISOR FINE GRADING Unavailable Unavailable Lake Wylie DNP Primary Care Provider [phone] Encounter Details Date Type Department Care Team (Late st Contact Info) Description 10/18/2024 Orders Only [facility] [address] [place], [place] [id number] Provider, Not In System Social History Tobacco [...] Description 12/22/2025 10:20 AM EDT Office Visit [facility] 119 [facility] [address] [place] [address] Lake Wylie, [facility] [address] [place] [address] documented as of this encounter Procedures Procedure Name Priority Date/Time Associated Diagnosis Comments MAMMOGRAPHY Routine 05/02/2024 12:06 PM EDT documented in this encounter Results * Mammography (05/02/2024 12:06 PM EDT) Anatomical Region Laterality Modality Other us Not In System Provider [facility] Result - Final documented in this encounter Visit Diagnoses Not on filedocumented in this encounter Care Teams Medication Tech Relationship Specialty Start Date End Date Lake Wylie DNP [address] [place] [address] PCP - General Family Medicine 08/15/23 Rita Montalvo FNP Family Medicine 06/24/22 documented as of this encounter
--- OUTSIDE RECORDS SUMMARY | 2025-08-05 22:46 | XMS_ITS | Encounter Summary ---
Author Organization [facility] Address [address] [employer] [address] [place] [address] Phone Care Team Providers Care Supervisor Cell Room Name Role Phone Lake Wylie UTILIZATION REVIEW SPECIALIST Primary Care Provider [phone] Encounter Details Date Type Department Care Team (Late st Contact Info) Description 02/18/2025 Procedure Pass [facility] Endoscopy Admitting Dept Virtual Department [address] [place] [address] Social History Tobacco Use Types Packs/Day Years [...] Description 09/18/2025 10:00 AM EST Office Visit [facility] Rheumatology [address] [place] [address] Audra Ulloa MD [address] [facility], [address] [place] [address] [email or web address] documented as of this encounter Visit Diagnoses Not on filedocumented in this encounter Care Teams Supervisor Cell Room Relationship Specialty Start Date End Date Lake Wylie NP [address] [place] [address] PCP - General Nurse Practitioner 02/18/25 documented as of this encounter Additional Source Comments The information contained in this document represents components of the legal health record. It is not the complete legal health record.[facility]
--- OUTSIDE RECORDS SUMMARY | 2025-08-05 22:46 | XMS_ITS | Encounter Summary ---
Author Organization [facility] Address [address] [place] [address] Phone Care Team Providers Care Photogrammetric Technician Name Role Phone Rita Montalvo MEDICAL RECEPTIONIST BILLER Primary Care Provider [place] MEDICAL RECEPTIONIST BILLER Primary Care Provider [phone] Encounter Details Date Type Department Care Team (Late st Contact Info) Description 06/23/2022 Procedure Pass [facility] Endoscopy Admitting Dept Virtual Department [address] [place] [address] Social History Tobacco Use Types Packs/Day Years [...] Description 09/18/2025 10:00 AM EST Office Visit [facility] Rheumatology [address] [place] [address] Audra Ulloa MD [address], [address] [place] [address] documented as of this encounter Visit Diagnoses Not on filedocumented in this encounter Care Teams Photogrammetric Technician Relationship Specialty Start Date End Date Rita Montalvo NP [address] [place] [address] PCP - General Family Medicine 06/23/22 02/17/25 [place] NP [address] [place] [id number] PCP - General Nurse Practitioner 02/18/25 documented as of this encounter Additional Source Comments The information contained in this document represents components of the legal health record. It is not the complete legal health record.[facility]
== END 2025-08-05 16:01 | disposition home or self-care (01) ==
LOC: HO.MAMMO 16:00
PROVIDERS: PCP Nurse Practitioner Family; Visit Provider Nurse Practitioner Family
DX: Z12.31 Encounter for screening mammogram for malignant neoplasm of breast (principal)
CPT/HCPCS: 77063; 77067

== ENCOUNTER → 2025-08-05 16:15 | Outpatient (BNV) | payer MEDICARE, SELFPAY | PROVIDERS: PCP Nurse Practitioner Family; Visit Provider Radiology Body Imaging | DX: Z12.31 Encounter for screening mammogram for malignant neoplasm of breast (principal) | CPT/HCPCS: 77063; 77067 ==